=== PATIENT | male | born 1960 | race Caucasian/White ===

== ENCOUNTER 2022-07-30 15:28 | Inpatient (IN) | payer OTHER ==
[~2022-07-30] VITALS: Ht 177.8 cm; Wt 97.8 kg
[2022-07-30] MEDS ORDERED: ONDANSETRON 4MG INJ IVP PRN (16:30)
[2022-07-30] MEDS ORDERED: ACETAMINOPHEN 650 MG SUPPOSITORY RC PRN (16:30)
[2022-07-30] MEDS ORDERED: ACETAMINOPHEN 325 MG TAB PO PRN (16:30)
[2022-07-30] MEDS ORDERED: LABETALOL 20MG SYG IV PRN (16:30)
[2022-07-30] MEDS ORDERED: LACTULOSE 20 GM/30 ML UDCUP PO PRN (16:30)
[2022-07-30] MEDS ORDERED: TEMAZEPAM 15 MG CAPSULE PO PRN (16:30)
[2022-07-30] MEDS ORDERED: CLONIDINE HCL 0.1 MG TABLET PO PRN (16:30)
[2022-07-30 17:23] LABS: BASOPHILS % (AUTO) 0.5 % (0.0-5.0); EOSINOPHILS % (AUTO) 1.7 % (0.0-8.0); HEMATOCRIT 41.9 % (42-54); MEAN CORPUSCULAR HEMOGLOBIN 30.9 pg (27.0-33.0); MEAN CORPUSCULAR HGB CONC 33.4 g/dL (32.0-36.0); MEAN CORPUSCULAR VOLUME 92.5 fL (79-99); MONOCYTES % (AUTO) 11.8 % (3.0-13.0); NEUTROPHILS % (AUTO) 63.9 % (40.0-77.0); PLATELET COUNT (AUTO) 176 K/uL (130-400); RED BLOOD CELL COUNT(AUTO) 4.53 MIL/uL (4.50-6.20); RED CELL DISTRIBUTION WIDTH 14.3 % (11.0-15.5); WHITE BLOOD COUNT (AUTO) 7.6 K/uL (4.8-10.8)
[2022-07-30 17:32] LABS: POTASSIUM 3.9 mmol/L (3.5-5.1)
[2022-07-30 17:40] LABS: ALBUMIN 4.1 g/dL (3.5-5.0); MAGNESIUM 2.1 mg/dL (1.80-2.40); PHOSPHORUS 2.9 mg/dL (2.5-4.9)
[2022-07-30] MEDS ORDERED: METO-391 PO (21:39)
[2022-07-30] MEDS ORDERED: ATOR20TA65 PO (21:39)
[2022-07-30] MEDS ORDERED: LISI20TA24 PO (21:39)
[2022-07-30] MEDS ORDERED: APIX5TAB PO (21:43)
[2022-07-30] MEDS ORDERED: DILTIAZEM 50MG VIAL IV SCH (22:00)
[2022-07-30] MEDS: DILTIAZEM 125 MG/NS 125ML IV SCH ×2 (22:21)
[2022-07-31 05:24] LABS: BASOPHILS % (AUTO) 0.4 % (0.0-5.0); EOSINOPHILS % (AUTO) 2.8 % (0.0-8.0); HEMATOCRIT 39.1 % (42-54); LYMPHOCYTES % (AUTO) 28.4 % (21.0-51.0); MEAN CORPUSCULAR HEMOGLOBIN 31.2 pg (27.0-33.0); MEAN CORPUSCULAR HGB CONC 34.5 g/dL (32.0-36.0); MEAN CORPUSCULAR VOLUME 90.3 fL (79-99); NEUTROPHILS % (AUTO) 55.2 % (40.0-77.0); PLATELET COUNT (AUTO) 155 K/uL (130-400); RED BLOOD CELL COUNT(AUTO) 4.33 MIL/uL (4.50-6.20); RED CELL DISTRIBUTION WIDTH 14.4 % (11.0-15.5); WHITE BLOOD COUNT (AUTO) 5.3 K/uL (4.8-10.8)
[2022-07-31 06:04] LABS: CREATININE 0.8 mg/dL (0.5-1.5); PHOSPHORUS 3.3 mg/dL (2.5-4.9); POTASSIUM 3.8 mmol/L (3.5-5.1)
[2022-07-31] MEDS: ASPIRIN 81MG CHEW TAB PO SCH (08:30)
[2022-07-31] MEDS: PANTOPRAZOLE 40 MG TAB DR PO SCH (08:30)
[2022-07-31] MEDS: ATORVASTATIN 20 MG TABLET PO SCH (08:30)
[2022-07-31] MEDS: APIXABAN 5 MG TABLET PO SCH ×2 (08:31→22:23)
[2022-07-31] MEDS: LISINOPRIL 20 MG TABLET PO SCH (08:35)
[2022-07-31] MEDS ORDERED: METOPROLOL SUCCINATE 25 MG TAB.SR.24H PO SCH ×2 (09:00→12:00)
[2022-07-31] MEDS ORDERED: FLEC50TA3 PO (11:54)
[2022-07-31] MEDS ORDERED: FLECAINIDE ACETATE 100 MG TABLET PO SCH (12:00)
[2022-07-31 16:40] VITALS: BP 118/72
[2022-07-31 19:18] VITALS: BP 124/95
[2022-07-31] MEDS ORDERED: FLECAINIDE ACETATE 50 MG PO SCH (21:00)
[2022-07-31] MEDS: FLECAINIDE ACETATE 100 MG TABLET PO SCH (22:23)
[2022-08-01 03:18] VITALS: BP 122/75
[2022-08-01 04:28] LABS: BASOPHILS % (AUTO) 0.6 % (0.0-5.0); EOSINOPHILS % (AUTO) 2.5 % (0.0-8.0); HEMATOCRIT 39.1 % (42-54); LYMPHOCYTES % (AUTO) 23.3 % (21.0-51.0); MEAN CORPUSCULAR HEMOGLOBIN 31.1 pg (27.0-33.0); MEAN CORPUSCULAR HGB CONC 33.5 g/dL (32.0-36.0); MEAN CORPUSCULAR VOLUME 92.9 fL (79-99); MONOCYTES % (AUTO) 10.6 % (3.0-13.0); NEUTROPHILS % (AUTO) 62.8 % (40.0-77.0); PLATELET COUNT (AUTO) 152 K/uL (130-400); RED BLOOD CELL COUNT(AUTO) 4.21 MIL/uL (4.50-6.20); RED CELL DISTRIBUTION WIDTH 14.5 % (11.0-15.5); WHITE BLOOD COUNT (AUTO) 6.4 K/uL (4.8-10.8)
[2022-08-01 05:12] LABS: POTASSIUM 4.5 mmol/L (3.5-5.1)
[2022-08-01] MEDS: METOPROLOL SUCCINATE 50 MG TAB.SR.24H PO SCH (08:14)
[2022-08-01] MEDS: ATORVASTATIN 20 MG TABLET PO SCH (08:14)
[2022-08-01] MEDS: APIXABAN 5 MG TABLET PO SCH ×2 (08:15→20:25)
[2022-08-01] MEDS: LISINOPRIL 20 MG TABLET PO SCH (08:15)
[2022-08-01] MEDS: PANTOPRAZOLE 40 MG TAB DR PO SCH (08:15)
[2022-08-01] MEDS: ASPIRIN 81MG CHEW TAB PO SCH (08:16)
[2022-08-01 08:22] VITALS: BP 124/66
[2022-08-01] MEDS: FLECAINIDE ACETATE 100 MG TABLET PO SCH (08:51)
[2022-08-01] MEDS: DILTIAZEM 125 MG/NS 125ML IV SCH ×2 (09:29)
[2022-08-01 11:26] VITALS: BP 119/91
[2022-08-01 15:45] VITALS: BP 136/96
[2022-08-01] MEDS: PROPAFENONE HCL 150 MG TABLET PO SCH (16:36)
[2022-08-01 19:52] VITALS: BP_SYST 123; BP_SYST 152; BP_DIAS 74; BP_DIAS 82
[2022-08-01 23:23] VITALS: BP 127/81
[2022-08-02] MEDS: PROPAFENONE HCL 150 MG TABLET PO SCH ×2 (01:10→07:19)
[2022-08-02 03:41] LABS: BASOPHILS % (AUTO) 0.4 % (0.0-5.0); EOSINOPHILS % (AUTO) 2.4 % (0.0-8.0); HEMATOCRIT 41.1 % (42-54); LYMPHOCYTES % (AUTO) 22.3 % (21.0-51.0); MEAN CORPUSCULAR HEMOGLOBIN 30.6 pg (27.0-33.0); MEAN CORPUSCULAR HGB CONC 33.3 g/dL (32.0-36.0); MEAN CORPUSCULAR VOLUME 91.9 fL (79-99); MONOCYTES % (AUTO) 11.5 % (3.0-13.0); NEUTROPHILS % (AUTO) 63.3 % (40.0-77.0); PLATELET COUNT (AUTO) 163 K/uL (130-400); RED BLOOD CELL COUNT(AUTO) 4.47 MIL/uL (4.50-6.20); RED CELL DISTRIBUTION WIDTH 14.1 % (11.0-15.5); WHITE BLOOD COUNT (AUTO) 6.7 K/uL (4.8-10.8)
[2022-08-02 03:49] LABS: POTASSIUM 4.1 mmol/L (3.5-5.1)
[2022-08-02 04:17] VITALS: BP 142/95
[2022-08-02] MEDS: APIXABAN 5 MG TABLET PO SCH (07:19)
[2022-08-02] MEDS: ASPIRIN 81MG CHEW TAB PO SCH (07:19)
[2022-08-02] MEDS: PANTOPRAZOLE 40 MG TAB DR PO SCH (07:19)
[2022-08-02] MEDS: ATORVASTATIN 20 MG TABLET PO SCH (07:20)
[2022-08-02] MEDS: METOPROLOL SUCCINATE 50 MG TAB.SR.24H PO SCH (07:20)
[2022-08-02 07:21] VITALS: BP 106/68
[2022-08-02] MEDS ORDERED: PROPOFOL 10 MG/ML 20ML VIAL IV ONE (07:52)
[2022-08-02] MEDS ORDERED: LIDOCAINE PF 100MG/5ML (2%) SYRINGE 5ML ONE (07:52)
[2022-08-02 08:06] VITALS: BP 106/68
[2022-08-02] MEDS: LISINOPRIL 20 MG TABLET PO SCH (09:43)
[2022-08-02 11:48] VITALS: BP 114/75
[2022-08-02] MEDS ORDERED: ASPI-1005 PO (14:25)
[2022-08-02] MEDS ORDERED: METO50TA9 PO (14:25)
[2022-08-02] MEDS ORDERED: PROP150T28 PO (14:25)
== END 2022-08-02 14:58 | disposition home or self-care (01) | DRG 291 ==
LOC: EDH 15:28 → OBSVTOIN 16:22 → DIRECT 16:22 → 2AH 07-31 16:24
PROVIDERS: ADMIT Internal Medicine Critical Care Medicine; ATTEND Internal Medicine Critical Care Medicine
DX: I11.0 Hypertensive heart disease with heart failure (principal); I50.43 Acute on chronic combined systolic (congestive) and diastolic (congestive) heart failure; I48.91 Unspecified atrial fibrillation; Z20.822 Contact with and (suspected) exposure to COVID-19; I42.9 Cardiomyopathy, unspecified; E78.5 Hyperlipidemia, unspecified; I34.0 Nonrheumatic mitral (valve) insufficiency; Z79.01 Long term (current) use of anticoagulants; Z86.19 Personal history of other infectious and parasitic diseases; Z87.891 Personal history of nicotine dependence; Z99.2 Dependence on renal dialysis
CPT/HCPCS: 36415; 71045; 80048; 80053; 82550; 83735; 83874; 83880; 84100; 84443; 84484; 85025; 87635; 87804; 93005; 93306; 93356; G0378; J2001; J2704; J3490